=== PATIENT | female | born 1985 | race Caucasian/White ===

== ENCOUNTER → 2024-05-15 | Outpatient (CLI) | payer OTHER ==
[~2024-05-15] MED LIST: GASTROGRAFIN SOLUTION 30ML ONE; LEVO150T7; NORE1TAB73; ROSU20TA61
== END ==
LOC: M PLAIMG 11:15
PROVIDERS: ATTEND Internal Medicine Hematology & Oncology
DX: C05.9 Malignant neoplasm of palate, unspecified (principal)